=== PATIENT | male | born 1990 | race African-American/Black ===

== ENCOUNTER 2018-02-14 09:38 | Emergency (ER) | payer SELFPAY ==
[~2018-02-14] VITALS: Ht 190.5 cm; Wt 67.0 kg
[2018-02-14 09:40] VITALS: BP 128/86; PULSE 73; RESP 16; TEMP 98; O2SAT 99
[2018-02-14] MEDS ORDERED: SODIUM CHLOR 0.9% 1000 ML INJ 1,000 ML IV ONE (10:00)
[2018-02-14] MEDS ORDERED: MORPHINE SULFATE 4 MG/ML INJ IV PUSH ONE (10:00)
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
[2018-02-14] MEDS ORDERED: TETANUS/DIPHTHERIA TOXOID ADULT 0.5 ML VIAL IM ONE (10:45)
[2018-02-14] MEDS ORDERED: ceFAZolin 2 GM PREMIX 50 ML IV ONE (10:45)
[2018-02-14 10:48] LABS: AUTOMATED NEUTROPHIL # 3.5 TH/MM3 (1.8-7.7); BASOPHIL % 0.4 % (0.0-2.0); EOSINOPHIL # 0.4 TH/MM3 (0-0.4); EOSINOPHIL % 6.2 % (0.0-4.0); HEMATOCRIT 42.7 % (39.0-51.0); HEMOGLOBIN 14.5 GM/DL (13.0-17.0); LYMPH % 21.8 % (9.0-44.0); LYMPHOCYTE # 1.3 TH/MM3 (1.0-4.8); MEAN CELL VOLUME 94.2 FL (80.0-100.0); MEAN CORPUSCULAR HEMOGLOBIN 32.1 PG (27.0-34.0); MEAN PLATELET VOLUME 8.8 FL (7.0-11.0); MONO % 14.4 % (0.0-8.0); MONOCYTE # 0.9 TH/MM3 (0-0.9); NEUT % 57.2 % (16.0-70.0); PLATELET COUNT 132 TH/MM3 (150-450); RED BLOOD COUNT 4.53 MIL/MM3 (4.50-5.90); WHITE BLOOD COUNT 6.1 TH/MM3 (4.0-11.0)
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
[2018-02-14 11:06] LABS: BICARBONATE 27.2 MEQ/L (21.0-32.0); CALCIUM 9.2 MG/DL (8.5-10.1); CREATININE 1.14 MG/DL (0.60-1.30)
[2018-02-14] MEDS ORDERED: CEPH-460 PO (11:44)
[2018-02-14] MEDS ORDERED: TRAM50TA PO (11:44)
[2018-02-14] MEDS ORDERED: IBUP1TAB7 PO (11:44)
== END 2018-02-14 12:43 | disposition home or self-care (01) ==
LOC: NEPD 09:38
DX: S80.212A Abrasion, left knee, initial encounter (principal); S60.511A Abrasion of right hand, initial encounter; S60.512A Abrasion of left hand, initial encounter; S90.512A Abrasion, left ankle, initial encounter; S70.212A Abrasion, left hip, initial encounter; S70.211A Abrasion, right hip, initial encounter; S40.212A Abrasion of left shoulder, initial encounter; S50.311A Abrasion of right elbow, initial encounter; M79.1 Myalgia; F12.90 Cannabis use, unspecified, uncomplicated; V28.4XXA Motorcycle driver injured in noncollision transport accident in traffic accident, initial encounter; Z23 Encounter for immunization; Z72.0 Tobacco use
CPT/HCPCS: 73120; 73560; 80048; 85025; 90471; 90714; 96365; 96375; 99284; J0690; J2270; J7030